=== PATIENT | female | born 1955 | race Caucasian/White ===

== ENCOUNTER 2018-02-17 06:38 | Day surgery (SDC) | payer BC ==
[~2018-02-17] VITALS: Ht 157.5 cm; Wt 63.5 kg
[~2018-02-17 06:38] MED LIST: KRILL OIL500 MG PO; LIPITOR20 MG PO; LO-DOSE ASPIRIN81 M2 PO; SYNTHROID50 MCG PO
[2018-02-17 08:03] VITALS: BP 118/62
[2018-02-17 09:55] VITALS: BP 132/74
== END 2018-02-17 10:22 | disposition home or self-care (01) ==
LOC: SDC 06:38
DX: H43.392 Other vitreous opacities, left eye (principal); H33.312 Horseshoe tear of retina without detachment, left eye; E03.9 Hypothyroidism, unspecified; Z79.82 Long term (current) use of aspirin
CPT/HCPCS: J0690; J0713; J2250; J2405; J3010; J3300